=== PATIENT | female | born 1990 | race Caucasian/White ===

== ENCOUNTER 2017-03-13 12:39 | Outpatient (CLI) ==
[2013-03-21 18:05] VITALS: TEMP 98.6
[2015-05-22 12:26] VITALS: BMI 19.9
--- NOTE | 2017-03-13 14:29 | US ---
EXAM: Ultrasound of the chest wall. History: Right chest wall palpable abnormality. Findings / impression: Multiple sonographic images through the right chest area were obtained. Wyatt r duplex Doppler was used to interrogate vascular flow. Findings / impression: 0.8 cm x 1.6 cm x 0.5 cm mixed echogenic area seen along the right chest wall could be related to th e rib or adjacent to the rib. This correlates to the palpable abnormality. Consider correlation wit h contrast enhanced chest CT if deemed clinically necessary.
== END 2017-03-13 12:40 | disposition home or self-care (01) ==
LOC: RAD 12:39
PROVIDERS: ATTEND Family Medicine
DX: R07.89 Other chest pain (principal)

== ENCOUNTER 2018-05-19 07:11 | Outpatient (CLI) ==
[2013-03-21 18:05] VITALS: TEMP 98.6
[2015-05-22 12:26] VITALS: BMI 19.9
--- NOTE | 2018-05-19 09:18 | US ---
EXAM: Limited OB ultrasound. History: Evaluate for viability Technique: Multiple sonographic images through the pelvis were obtained. Color duplex Doppler was u sed to interrogate vascular flow. Findings / impression: Single live intrauterine identified with heart rate of 161 beats per minute. Average gestational age by ultrasound is 12 weeks and 5 days. Estimated date of delivery is 11/26/2018
== END 2018-05-19 07:12 | disposition home or self-care (01) ==
LOC: RAD 07:11
PROVIDERS: ATTEND Nurse Practitioner Women's Health
DX: O36.80X0 Pregnancy with inconclusive fetal viability, not applicable or unspecified (principal)